=== PATIENT | female | born 1955 | race Caucasian/White ===

== ENCOUNTER → 2018-05-25 11:51 | Outpatient (CLI) | payer OTHER, SELFPAY ==
--- NOTE | 2018-05-25 | DI.MG.S_ITS ---
BILATERAL DIGITAL SCREENING MAMMOGRAM 3D/2D WITH CAD WITH AUGMENTATION: 05/25/2018 CLINICAL: Routine screening. Comparison is made to exams dated: 12/28/2009 mammogram and 08/06/2007 mammogram - [facility]. The tissue of both breasts is heterogeneously dense. This may lower the sensitivity of mammography. Current study was also evaluated with a Computer Aided Detection (CAD) system. No significant masses, calcifications, or other findings are seen in either breast. There has been no significant interval change. IMPRESSION: NEGATIVE There is no mammographic evidence of malignancy. A 1 year screening mammogram is recommended. This exam was interpreted at Station ID: [id number]. NOTE: For mammograms, a report in lay terms will be sent to the patient. Approximately 15% of breast malignancies will not be visualized mammographically. In the management of a palpable breast mass, a negative mammogram must not discourage biopsy of a clinically suspicious lesion. Electronically Signed By: Elijah lozoya/scot:05/25/2018 13:27:56 letter sent: Normal Exam ACR BI-RADS Category 1: Negative [id number]
--- NOTE | 2018-05-25 12:02 | DI.US.S_ITS ---
PROCEDURE: US ARTERIAL DUPLEX LE BI INDICATIONS: Raynaud's syndrome TECHNIQUE: Color and pulse Doppler interrogation was performed of both lower extremity arterial systems, with image documentation. COMPARISON: Merged With [facility], , ARTERIAL LOW.EXTREM.BILATERAL, 05/14/2011, 14:06. FINDINGS: Right lower extremity: Common femoral artery: 111 cm/sec, with triphasic flow. Deep femoral artery: 104 cm/sec, with triphasic flow. Proximal superficial femoral artery: 95 cm/sec, with triphasic flow. Mid superficial femoral artery: 98 cm/sec, with triphasic flow. Distal superficial femoral artery: 81 cm/sec, with triphasic flow. Popliteal artery: 84 cm/sec, with triphasic flow. Posterior tibial artery: 96 cm/sec, with triphasic flow. Anterior tibial artery/dorsalis pedis: 73 cm/sec, with triphasic flow. Blankenship-scale imaging description: Mild atheromatous plaque is present within the right lower extremity arteries. No hemodynamically significant stenosis. Left lower extremity: Common femoral artery: 109 cm/sec, with triphasic flow. Deep femoral artery: 81 cm/sec, with triphasic flow. Proximal superficial femoral artery: 108 cm/sec, with triphasic flow. Mid superficial femoral artery: 111 cm/sec, with triphasic flow. Distal superficial femoral artery: 83 cm/sec, with triphasic flow. Popliteal artery: 74 cm/sec, with triphasic flow. Posterior tibial artery: 89 cm/sec, with triphasic flow. Anterior tibial artery/dorsalis pedis: 105 cm/sec, with triphasic flow. Blankenship-scale imaging description: Mild atheromatous plaque is present within the left lower study arteries. No hemodynamically significant stenosis. IMPRESSION: No hemodynamically significant stenosis of the bilateral lower extremity arteries with triphasic waveforms throughout. Dictated by: Rehana Ramirez M.D. on 05/25/2018 at 16:06 Approved by: Rehana Ramirez M.D. on 05/25/2018 at 16:09
== END ==
PROVIDERS: PCP Student in an Organized Health Care Education/Training Program; Visit Provider Student in an Organized Health Care Education/Training Program
DX: Z12.31 Encounter for screening mammogram for malignant neoplasm of breast (principal); I73.00 Raynaud's syndrome without gangrene; D86.9 Sarcoidosis, unspecified
CPT/HCPCS: 77063; 77067; 93925

== ENCOUNTER → 2019-10-19 07:40 | Outpatient (CLI) | payer OTHER, SELFPAY ==
[2019-10-19 08:23] LABS: Add Manual Diff / Slide Review NO; Basophils Absolute Auto 100 /uL (0-100); Basophils Percent Auto 1.2 % (0-2); Eosinophils Absolute Auto 200 /uL (0-450); Eosinophils Percent Auto 3.5 % (2-4); Hematocrit 39.1 % (36-46); Hemoglobin 13.1 g/dL (12.0-16.0); Lymphocytes Absolute Auto 1300 /uL (1100-4500); Lymphocytes Percent Auto 23.7 % (25-40); Mean Corpuscular HGB Conc 33.6 % (30-36); Mean Corpuscular Volume 92.2 fL (80-100); Monocytes Absolute Auto 500 /uL (0-900); Monocytes Percent Auto 8.6 % (3-14); Neutrophils Absolute Auto 3500 /uL (1500-7000); Platelet Count 272 X10^3/uL (150-400); Red Blood Cell Count 4.24 X10^6/uL (4.0-5.2); White Blood Cell Count 5.5 X10^3/uL (4.5-11.0)
[2019-10-19 08:39] LABS: Alanine Aminotransferase 17 IU/L (<35); Albumin 4.1 g/dL (3.5-5.0); Albumin Globulin Ratio 1.5 (1.0-2.8); Alkaline Phosphatase 62 U/L (38-126); Aspartate Aminotransferase 29 IU/L (14-36); BUN Creatinine Ratio 19.8 (6-22); Bilirubin Total 0.7 mg/dL (0.2-1.3); Blood Urea Nitrogen 20 mg/dL (7-17); Calcium 9.2 mg/dL (8.4-10.2); Carbon Dioxide 31 mmol/L (22-32); Chloride 101 mmol/L (98-107); Estimated Glomerular Filt Rate 54.8 mL/min (>60); Globulin 2.8 g/dL (1.7-4.1); Glucose 99 mg/dL (80-110); HEMOLYSIS < 15 (0-50); Sodium 137 mmol/L (137-145); Total Protein 6.9 g/dL (6.3-8.2)
[2019-10-19 08:47] LABS: Hemoglobin A1C% w Est Avg Glu 5.2 % (4.0-6.0)
[2019-10-19 08:50] LABS: Iron 100 ug/dL (37-170)
[2019-10-19 09:00] LABS: Total Iron Binding Capacity 318 ug/dL (265-497)
[2019-10-19 09:09] LABS: Free T3, Triiodothyronine Free 3.17 pg/mL (2.77-5.27); Free T4, Direct Thyroxine 1.29 ng/dL (0.78-2.19)
[2019-10-19 09:10] LABS: Ferritin 118 ng/mL (11-264); Testosterone 34.7 ng/dL (5.71-77.0)
[2019-10-19 09:22] LABS: Thyroid Stimulating Hormone 6.05 uIU/mL (0.47-4.68)
[2019-10-19 09:23] LABS: Estradiol, Total 552.2 pg/mL
== END ==
PROVIDERS: PCP Internal Medicine; Referring Provider Internal Medicine Endocrinology, Diabetes & Metabolism; Visit Provider Internal Medicine Endocrinology, Diabetes & Metabolism
DX: F64.9 Gender identity disorder, unspecified (principal); E03.9 Hypothyroidism, unspecified; D64.9 Anemia, unspecified
CPT/HCPCS: 36415; 80053; 82670; 82728; 83036; 83540; 83550; 84403; 84439; 84443; 84481; 85025

== ENCOUNTER → 2020-01-12 13:30 | Outpatient (CLI) | payer OTHER, SELFPAY ==
[2020-01-12 16:34] LABS: Alanine Aminotransferase 17 IU/L (<35); Albumin 4.3 g/dL (3.5-5.0); Albumin Globulin Ratio 1.5 (1.0-2.8); Alkaline Phosphatase 84 U/L (38-126); Aspartate Aminotransferase 30 IU/L (14-36); BUN Creatinine Ratio 23.5 (6-22); Bilirubin Total 0.7 mg/dL (0.2-1.3); Blood Urea Nitrogen 27 mg/dL (7-17); Calcium 9.4 mg/dL (8.4-10.2); Carbon Dioxide 32 mmol/L (22-32); Chloride 95 mmol/L (98-107); Estimated Glomerular Filt Rate 47.2 mL/min (>60); Globulin 2.9 g/dL (1.7-4.1); Glucose 89 mg/dL (80-110); HEMOLYSIS < 15 (0-50); Potassium 5.1 mmol/L (3.4-5.1); Sodium 134 mmol/L (137-145); Total Protein 7.2 g/dL (6.3-8.2)
[2020-01-12 16:50] LABS: Free T4, Direct Thyroxine 1.31 ng/dL (0.78-2.19)
[2020-01-12 17:07] LABS: Estradiol, Total 143.4 pg/mL
== END ==
PROVIDERS: PCP Internal Medicine; Referring Provider Internal Medicine Endocrinology, Diabetes & Metabolism; Visit Provider Internal Medicine Endocrinology, Diabetes & Metabolism
DX: F64.9 Gender identity disorder, unspecified (principal); E03.9 Hypothyroidism, unspecified
CPT/HCPCS: 36415; 80053; 82670; 84439; 84443

== ENCOUNTER → 2020-07-18 14:35 | Outpatient (CLI) | payer MEDICARE, SELFPAY ==
[2020-07-18] MEDS: COVID-19 VACC #1, MRNA(MOD) 100 MCG/0.5 ML VIAL IM (14:52)
== END ==
PROVIDERS: PCP Internal Medicine; Visit Provider Internal Medicine
DX: Z23 Encounter for immunization (principal)
CPT/HCPCS: 0011A; 91301

== ENCOUNTER → 2020-08-15 14:22 | Outpatient (CLI) | payer MEDICARE, SELFPAY ==
[2020-08-15] MEDS: COVID-19 VACC #2, MRNA(MOD) 100 MCG/0.5 ML VIAL IM (14:27)
== END ==
PROVIDERS: PCP Internal Medicine; Visit Provider Internal Medicine
DX: Z23 Encounter for immunization (principal)
CPT/HCPCS: 0012A; 91301

== ENCOUNTER → 2020-10-01 08:07 | Outpatient (CLI) | payer OTHER, SELFPAY ==
[2020-10-01 09:43] LABS: Alanine Aminotransferase 17 IU/L (<35); Albumin 3.7 g/dL (3.5-5.0); Albumin Globulin Ratio 1.4 (1.0-2.8); Alkaline Phosphatase 60 U/L (38-126); Aspartate Aminotransferase 27 IU/L (14-36); BUN Creatinine Ratio 24.4 (6-22); Bilirubin Total 0.4 mg/dL (0.2-1.3); Blood Urea Nitrogen 22 mg/dL (7-17); Calcium 9.1 mg/dL (8.4-10.2); Carbon Dioxide 28 mmol/L (22-32); Chloride 102 mmol/L (98-107); Cholesterol 192 mg/dL (140-199); Estimated Glomerular Filt Rate > 60.0 mL/min (>60); Globulin 2.6 g/dL (1.7-4.1); Glucose 101 mg/dL (80-110); HDL Cholesterol 46 mg/dL (40-60); HEMOLYSIS < 15 (0-50); LDL Cholesterol Calculated 128 mg/dL (<100); Sodium 137 mmol/L (137-145); Total Protein 6.3 g/dL (6.3-8.2); Triglycerides 89 mg/dL (35-150)
[2020-10-01 10:30] LABS: TSH w/ Reflex to FT4 2.47 uIU/mL (0.47-4.68)
== END ==
PROVIDERS: PCP Internal Medicine; Referring Provider Internal Medicine; Visit Provider Internal Medicine
DX: I10 Essential (primary) hypertension (principal); E03.9 Hypothyroidism, unspecified; E78.5 Hyperlipidemia, unspecified
CPT/HCPCS: 36415; 80053; 80061; 84443

== ENCOUNTER → 2021-11-08 08:32 | Outpatient (CLI) | payer OTHER, SELFPAY ==
[2021-11-08 09:50] LABS: Hemoglobin A1C% w Est Avg Glu 5.5 % (4.0-6.0)
[2021-11-08 09:56] LABS: Alanine Aminotransferase 14 IU/L (<35); Albumin Globulin Ratio 1.5 (1.0-2.8); Alkaline Phosphatase 63 U/L (38-126); Aspartate Aminotransferase 27 IU/L (14-36); BUN Creatinine Ratio 18.8 (6-22); Bilirubin Total 0.6 mg/dL (0.2-1.3); Blood Urea Nitrogen 19 mg/dL (7-17); Calcium 8.7 mg/dL (8.4-10.2); Carbon Dioxide 29 mmol/L (22-32); Chloride 101 mmol/L (98-107); Cholesterol 216 mg/dL (140-199); Estimated Glomerular Filt Rate > 60 mL/min (>60); Globulin 2.6 g/dL (1.7-4.1); Glucose 104 mg/dL (80-110); HDL Cholesterol 47 mg/dL (40-60); HEMOLYSIS < 15 (0-50); LDL Cholesterol Calculated 143 mg/dL (<100); Potassium 4.3 mmol/L (3.4-5.1); Sodium 137 mmol/L (137-145); Total Protein 6.6 g/dL (6.3-8.2); Triglycerides 130 mg/dL (35-150)
[2021-11-08 10:15] LABS: Free T4, Direct Thyroxine 1.45 ng/dL (0.78-2.19)
[2021-11-08 10:26] LABS: Estradiol, Total 96.2 pg/mL
[2021-11-08 10:28] LABS: Testosterone 48.2 ng/dL (5.71-77.0)
[2021-11-08 10:29] LABS: Thyroid Stimulating Hormone 2.32 uIU/mL (0.47-4.68)
[2021-11-09 05:11] LABS: C Peptide 4.1 ng/mL (1.1-4.4)
== END ==
PROVIDERS: PCP Student in an Organized Health Care Education/Training Program; Referring Provider Internal Medicine Endocrinology, Diabetes & Metabolism; Visit Provider Internal Medicine Endocrinology, Diabetes & Metabolism
DX: R73.9 Hyperglycemia, unspecified (principal); E03.9 Hypothyroidism, unspecified; F64.9 Gender identity disorder, unspecified
CPT/HCPCS: 36415; 80053; 80061; 82670; 83036; 84403; 84439; 84443; 84681

== ENCOUNTER → 2021-11-20 14:18 | Outpatient (CLI) | payer OTHER, SELFPAY ==
[2021-11-20 16:35] LABS: Appearance Urine UA CLEAR; Bilirubin Urine UA NEGATIVE (NEGATIVE); Color Urine UA YELLOW; Glucose Urine UA NEGATIVE (Negative); Ketones Urine UA NEGATIVE (NEGATIVE); Leukocyte Esterase Urine UA NEGATIVE (NEGATIVE); Nitrite Urine UA NEGATIVE (Negative); Occult Blood Urine UA NEGATIVE (Negative); Protein Urine UA NEGATIVE (Negative); Specific Gravity Urine UA 1.015 (1.000-1.035); Urobilinogen Urine UA 0.2 E.U./dL (0.2)
[2021-11-20 16:39] LABS: pH Urine UA 7.5 (4.5-8.0)
[2021-11-20 16:42] LABS: RBC Urine None Seen (0-5/HPF); Squamous Epithelial Cell Urine 10-30 /HPF (0-5/HPF); WBC Urine None Seen (0-5/HPF)
[2021-11-20 17:00] LABS: Erythrocyte Sedimentation Rate 20 MM/HR (0-20)
[2021-11-20 17:10] LABS: C-Reactive Protein Quant 0.9 mg/dL (<1.0)
[2021-11-20 20:43] LABS: Bacteria Urine None Seen
[2021-11-22 14:14] LABS: ANA Screen, IFA Negative (.)
== END ==
PROVIDERS: PCP Student in an Organized Health Care Education/Training Program; Referring Provider Student in an Organized Health Care Education/Training Program; Visit Provider Student in an Organized Health Care Education/Training Program
DX: I73.00 Raynaud's syndrome without gangrene (principal)
CPT/HCPCS: 36415; 81001; 85651; 86038; 86140

== ENCOUNTER → 2022-01-07 08:41 | Outpatient (CLI) | payer OTHER, SELFPAY ==
--- NOTE | 2022-01-07 08:42 | DI.RAD.S_ITS ---
PROCEDURE: XR KNEE LT 3V INDICATIONS: persistent left knee pain TECHNIQUE: 3 views of the knee were acquired. COMPARISON: None. FINDINGS: Bones: No fractures or dislocations. Ixnh-pr-cdqtemcx medial femoral tibial compartment osteoarthritic changes are seen with joint space narrowing, subchondral sclerosis and marginal osteophyte formation. Focal area of cortical irregularity involving weight-bearing portion of medial femoral condyle is seen, concerning for osteochondral injury in this area. No suspicious bony lesions. Soft tissues: There is small amount of suprapatellar joint effusion. No suspicious soft tissue calcifications. IMPRESSION: Lesv-gt-dduujnuj medial femoral tibial compartment osteoarthritis with suggestion of osteochondral injury involving weight-bearing portion of talar dome. No acute fracture or dislocation. Small to moderate amount of suprapatellar joint effusion. If indicated, MRI of knee can be done for further evaluation of internal derangement. Dictated by: Veto Rosario M.D. on 01/07/2022 at 9:58 Approved by: Veto Rosario M.D. on 01/07/2022 at 9:59
== END ==
PROVIDERS: PCP Student in an Organized Health Care Education/Training Program; Referring Provider Student in an Organized Health Care Education/Training Program; Visit Provider Student in an Organized Health Care Education/Training Program
DX: M25.562 Pain in left knee (principal); M17.12 Unilateral primary osteoarthritis, left knee
CPT/HCPCS: 73562

== ENCOUNTER → 2022-01-17 12:31 | Outpatient (CLI) | payer OTHER, SELFPAY ==
--- NOTE | 2022-01-17 12:33 | DI.MRI.S_ITS ---
PROCEDURE: MR KNEE LT WO CON INDICATIONS: Knee pain. Abnormal xray TECHNIQUE: Noncontrast sagittal PD fast spin echo and T2 fast spin echo with fat saturation, sagittal 3-D FLASH with fat saturation; coronal T1 spin echo and PD fast spin echo with fat saturation, and axial PD fast spin echo with fat saturation through the knee. COMPARISON: [facility], CR, XR KNEE LT 3V, 01/07/2022, 8:42. FINDINGS: Image quality: Excellent. Menisci: Complex tear involving posterior horn of medial meniscus is seen extending to both superior and inferior articulating surfaces. Peripheral displacement of medial meniscus bowing medial collateral ligament is seen. Lateral meniscus is intact. The meniscal root ligaments appear intact. Cruciate ligaments: Low to moderate grade partial-thickness tear involving proximal to midportion of anterior cruciate ligament. No full-thickness ACL rupture. PCL is intact. Medial structures: Moderate grade medial collateral ligament sprain/partial-thickness tear particularly near its femoral insertion is seen.. The posterior oblique ligament, semimembranosus tendon insertions, oblique popliteal ligament, and meniscocapsular junction appear intact. Visualized portions of the pes anserinus tendons appear normal. No abnormal bursal fluid. Lateral structures: Low-grade proximal LCL sprain/partial-thickness tear is seen. The long and short heads of the biceps femoris tendon appear intact. The popliteus tendon appears normal; the popliteofibular ligament appears intact. Iliotibial band appears normal. Anterior structures: The quadriceps and patellar tendons appear intact. Patellar alignment is normal. No femoral trochlear dysplasia or ventral trochlear prominence. No edema in the infrapatellar fat pad. Bones and cartilage: Moderate to severe medial femoral tibial compartment osteoarthritis and moderate grade chondromalacia is seen. 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 Low-grade chondromalacia and mild osteoarthritis in lateral femoral tibial compartment and patellofemoral compartment is seen. Joint space: There is moderate to large knee joint fluid. There is a tiny Jerome's cyst. No definite intra-articular loose body is seen. Normal appearing synovial plicae are incidentally noted. IMPRESSION: 1. 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 2. Moderate to severe medial femoral tibial compartment osteoarthritis and moderate grade chondromalacia. Mild osteoarthritis and low-grade chondromalacia in patellofemoral compartment and lateral femoral tibial compartment. Moderate to large joint effusion, no gross loose bodies. 3. Complex tear involving posterior horn of medial meniscus extending to both superior and inferior articulating surfaces. No focal lateral meniscal tear. 4. Low to moderate grade partial-thickness tear involving proximal to midportion of ACL. No ACL rupture. PCL is intact. 5. Moderate grade MCL sprain/partial-thickness tear and low-grade proximal LCL sprain/partial-thickness tear. Dictated by: Veto Rosario M.D. on 01/17/2022 at 14:03 Approved by: Veto Rosario M.D. on 01/17/2022 at 14:13
== END ==
PROVIDERS: PCP Student in an Organized Health Care Education/Training Program; Referring Provider Student in an Organized Health Care Education/Training Program; Visit Provider Student in an Organized Health Care Education/Training Program
DX: S83.232A Complex tear of medial meniscus, current injury, left knee, initial encounter (principal); S83.512A Sprain of anterior cruciate ligament of left knee, initial encounter; S83.412A Sprain of medial collateral ligament of left knee, initial encounter; S83.422A Sprain of lateral collateral ligament of left knee, initial encounter; M17.12 Unilateral primary osteoarthritis, left knee; M22.42 Chondromalacia patellae, left knee; M25.462 Effusion, left knee; M25.562 Pain in left knee
CPT/HCPCS: 73721

== ENCOUNTER → 2022-03-27 11:15 | Outpatient (CLI) | payer OTHER, SELFPAY ==
[2022-03-27 13:59] LABS: BUN Creatinine Ratio 14.1 (6-22); Blood Urea Nitrogen 13 mg/dL (7-17); Calcium 9.1 mg/dL (8.4-10.2); Carbon Dioxide 30 mmol/L (22-32); Chloride 99 mmol/L (98-107); Estimated Glomerular Filt Rate > 60 mL/min (>60); Glucose 95 mg/dL (80-110); HEMOLYSIS < 15 (0-50); Potassium 4.6 mmol/L (3.4-5.1); Sodium 138 mmol/L (137-145)
== END ==
PROVIDERS: PCP Student in an Organized Health Care Education/Training Program; Referring Provider Student in an Organized Health Care Education/Training Program; Visit Provider Student in an Organized Health Care Education/Training Program
DX: Z01.818 Encounter for other preprocedural examination (principal)
CPT/HCPCS: 36415; 80048

== ENCOUNTER → 2022-03-31 12:21 | Outpatient (CLI) | payer OTHER, SELFPAY ==
--- NOTE | 2022-03-31 12:25 | DI.CT.S_ITS ---
PROCEDURE: CT ANGIO ABD AORTA RUNOFF INDICATIONS: Non-healing ulcer, faint DP pulse TECHNIQUE: After the administration of intravenous contrast, 2.5 mm sections acquired from T12 to the feet, with optional delayed image acquisition from the knees to the feet. 3-dimensional maximum intensity projection (MIP) coronal and sagittal reformats, and/or 3-dimensional volume rendering reformatting was then performed. For radiation dose reduction, the following was used: automated exposure control. COMPARISON: None. FINDINGS: Image quality: Excellent. Extravascular tissues: Lung bases are clear. Heart size is normal. Liver is normal in size and enhancement. Gallbladder is unremarkable . Biliary system is non dilated. Pancreas enhances normally. Spleen is normal in size and enhancement. No adrenal nodules. Kidneys are normal in size and enhancement, without hydronephrosis. Non opacified bowel loops demonstrate normal wall thickness and enhancement. There are scattered sigmoid diverticula. No evidence for diverticulitis. The appendix is thin walled. No free fluid or air. No retroperitoneal or mesenteric adenopathy. No ventral hernias. Bladder wall thickness is normal. No inguinal adenopathy. There are small bilateral fat containing inguinal hernias. No suspicious bony lesions. No vertebral body compression fractures. Abdominal aorta: The abdominal aorta demonstrates normal size and caliber. No atheromatous plaque, atheromatous calcifications, stenosis, occlusion, or aneurysmal dilatation. The celiac axis, SMA, HENRIK and bilateral renal arteries are widely patent. Right lower extremity: The arteries of the right lower extremity are widely patent without focal hemodynamically significant stenosis, atheromatous plaque, atheromatous calcification, or aneurysmal dilatation. There is 3 vessel runoff to the level of the foot. Left lower extremity: The arteries of the left lower extremity are widely patent without focal hemodynamically significant stenosis, atheromatous plaque, atheromatous calcification, or aneurysmal dilatation. There is 3 vessel left lower extremity runoff. IMPRESSION: 1. No focal hemodynamically significant stenosis of the aorta, mesenteric arteries, renal arteries, or the bilateral lower extremity arteries. No atheromatous plaque or calcification noted. 2. Three-vessel bilateral lower extremity runoff. 3. No acute intra-abdominal findings. Dictated by: Rehana Ramirez M.D. on 03/31/2022 at 14:56 Approved by: Rehana Ramirez M.D. on 03/31/2022 at 15:01
== END ==
PROVIDERS: PCP Student in an Organized Health Care Education/Training Program; Referring Provider Student in an Organized Health Care Education/Training Program; Visit Provider Student in an Organized Health Care Education/Training Program
DX: Z13.820 Encounter for screening for osteoporosis (principal); L97.509 Non-pressure chronic ulcer of other part of unspecified foot with unspecified severity; Z78.0 Asymptomatic menopausal state; M25.569 Pain in unspecified knee; Z87.311 Personal history of (healed) other pathological fracture; Z92.23 Personal history of estrogen therapy; Z92.241 Personal history of systemic steroid therapy
CPT/HCPCS: 75635; 77080

== ENCOUNTER → 2023-08-26 12:33 | Outpatient (CLI) | payer OTHER, SELFPAY ==
[2023-08-26 14:14] LABS: Alanine Aminotransferase 20 IU/L (<35); Albumin 4.4 g/dL (3.5-5.0); Albumin Globulin Ratio 1.5 (1.0-2.8); Alkaline Phosphatase 68 U/L (38-126); Aspartate Aminotransferase 29 IU/L (14-36); BUN Creatinine Ratio 17.8 (6-22); Bilirubin Total 0.8 mg/dL (0.2-1.3); Blood Urea Nitrogen 18 mg/dL (7-17); Carbon Dioxide 28 mmol/L (22-32); Chloride 105 mmol/L (98-107); Cholesterol 196 mg/dL (140-199); Estimated Glomerular Filt Rate 60 mL/min (>60); Glucose 100 mg/dL (80-110); HDL Cholesterol 37 mg/dL (40-60); HEMOLYSIS < 15 (0-50); LDL Cholesterol Calculated 125 mg/dL (<100); Sodium 138 mmol/L (137-145); Total Protein 7.4 g/dL (6.3-8.2); Triglycerides 168 mg/dL (35-150)
[2023-08-26 14:46] LABS: TSH w/ Reflex to FT4 1.95 uIU/mL (0.47-4.68)
== END ==
PROVIDERS: PCP Student in an Organized Health Care Education/Training Program; Referring Provider Student in an Organized Health Care Education/Training Program; Visit Provider Student in an Organized Health Care Education/Training Program
DX: E03.9 Hypothyroidism, unspecified (principal); K21.9 Gastro-esophageal reflux disease without esophagitis; F32.9 Major depressive disorder, single episode, unspecified; E78.5 Hyperlipidemia, unspecified
CPT/HCPCS: 36415; 80053; 80061; 84443

== ENCOUNTER → 2023-10-19 09:52 | Outpatient (CLI) | payer OTHER, SELFPAY ==
--- NOTE | 2023-10-19 09:53 | DI.RAD.S_ITS ---
PROCEDURE: XR CERVICAL SPINE 2V OR 3V INDICATIONS: Numbness and tingling TECHNIQUE: 3 view(s) of the cervical spine were acquired. COMPARISON: None. FINDINGS: Bones: There is reversal of normal cervical lordosis. Degenerative endplate changes, loss of disc height and bilateral uncovertebral hypertrophic changes throughout cervical spine is seen more notably involving C4-5 through C6-7 levels. The lateral masses of C1 appear intact on the odontoid view. No suspicious bony lesions. Soft tissues: No prevertebral soft tissue swelling. IMPRESSION: No acute cervical spine fracture or dislocation. Moderate degenerative disc disease in mid to lower cervical spine as above. Dictated by: Veto Rosario M.D. on 10/19/2023 at 12:37 Approved by: Veto Rosario M.D. on 10/19/2023 at 12:38
--- NOTE | 2023-10-19 09:53 | DI.RAD.S_ITS ---
PROCEDURE: XR SHOULDER RT MIN 2V INDICATIONS: Numbness and tingling TECHNIQUE: 3 views of the shoulder were acquired. COMPARISON: None. FINDINGS: Bones: No fractures or dislocations. Moderate to severe glenohumeral joint osteoarthritis and moderate acromioclavicular joint osteoarthritis is seen. No suspicious bony lesions. Visualized ribs appear intact. Soft tissues: No suspicious soft tissue calcifications. IMPRESSION: Moderate acromioclavicular joint osteoarthritis and moderate to severe glenohumeral joint osteoarthritis. No fracture or dislocation. Dictated by: Veto Rosario M.D. on 10/19/2023 at 12:38 Approved by: Veto Rosario M.D. on 10/19/2023 at 12:38
== END ==
PROVIDERS: PCP Student in an Organized Health Care Education/Training Program; Referring Provider Student in an Organized Health Care Education/Training Program; Visit Provider Student in an Organized Health Care Education/Training Program
DX: M50.321 Other cervical disc degeneration at C4-C5 level (principal); M19.011 Primary osteoarthritis, right shoulder; R20.0 Anesthesia of skin; R20.2 Paresthesia of skin
CPT/HCPCS: 72040; 73030

== ENCOUNTER → 2023-10-27 07:51 | Outpatient (CLI) | payer OTHER, SELFPAY ==
--- NOTE | 2023-10-27 07:52 | DI.MRI.S_ITS ---
PROCEDURE: MR SHOULDER RT WO CON INDICATIONS: Chronic Right Shoulder pain TECHNIQUE: Noncontrast oblique coronal T2 fast spin echo with fat saturation, oblique sagittal T1 spin echo and T2 fast spin echo with fat saturation, axial T1 spin echo and T2 fast spin echo with fat saturation through the shoulder. COMPARISON: [facility], CR, XR SHOULDER RT MIN 2V, 10/19/2023, 10:07. FINDINGS: Image quality: Excellent. Rotator cuff: Low to moderate grade articular and bursal surface partial thickness tear involving distal supraspinatus at its insertion on the humeral head is seen extending to musculotendinous junction. Distal infraspinatus tendinosis and low-grade articular surface partial-thickness tear at its insertion on the humeral head is also noted. Distal subscapularis tendinosis is seen. No full-thickness rotator cuff tendon rupture. Sagittal images demonstrate moderate supraspinatus muscle atrophy. Bones and bursae: No bone marrow contusions or fractures. Unqa-of-euulbarz acromioclavicular joint osteoarthritic changes are seen with marginal osteophyte formation depressing the musculotendinous junction of supraspinatus. Type 1 acromion without an os acromiale. Moderate to severe glenohumeral joint osteoarthritic changes are seen with near complete loss of joint space and marginal osteophyte formation. Small to moderate amount of joint effusion and subacromial subdeltoid bursal fluid is seen, no loose bodies. Capsule and soft tissues: There is fraying of superior anterior labrum with T2 hyperintense signal . Similar fraying and signal abnormality involving anterior inferior labrum is also seen. The long head of the biceps tendon demonstrates normal location and morphology. The rotator interval appears normal, without fibrosis. The coracohumeral ligament is normal in thickness. IMPRESSION: 1. Low to moderate grade articular and bursal surface partial thickness tear involving distal supraspinatus extending to musculotendinous junction. Distal infraspinatus tendinosis and low-grade articular surface partial-thickness tear. Distal subscapularis tendinosis. No full-thickness rotator cuff tendon rupture. Moderate supraspinatus muscle atrophy. 2. Yoqz-zx-lzmlhgjr acromioclavicular joint osteoarthritis. No fracture or dislocation. Moderate to severe glenohumeral joint osteoarthritis. Moderate joint effusion and subacromial subdeltoid bursal fluid, no loose bodies. 3. Suggestion of superior anterior labral tear and anterior inferior labral tear. Dictated by: Veto Rosario M.D. on 10/27/2023 at 15:31 Approved by: Veto Rosario M.D. on 10/27/2023 at 15:44
--- NOTE | 2023-10-27 07:52 | DI.CT.S_ITS ---
PROCEDURE: CT CHEST WO CON INDICATIONS: Non cardiac chest pain TECHNIQUE: Noncontrast 5 mm thick sections acquired from the pulmonary apices to the posterior costophrenic angles. 1 mm lung window, 5 mm thick coronal and sagittal and 7 mm axial MIP reformats were then acquired. For radiation dose reduction, the following was used: automated exposure control, adjustment of mA and/or kV according to patient size. COMPARISON: [facility], CT, THORAX WITHOUT CONTRAST, 05/25/2013, 7:32. FINDINGS: Image quality: Diagnostic. Lower Neck: No enlarged lymph nodes. Thyroid: No thyroid nodules which require sonographic follow up, per consensus guidelines. Axillae: No enlarged lymph nodes. Chest Wall: Bilateral breast implants. Bones: Unremarkable. Lungs and Pleura: No pneumothorax or pleural effusions. Left upper lobe wedge resection. 3-4 mm solid nodule in the left upper lobe (series 3, image 102). Juxtapleural nodules with smooth margins, favoring benign intrapulmonary lymph nodes. Subpleural fat hypertrophy of the lung bases. Calcified granuloma. Heart: Heart size is normal. No pericardial effusion. Thoracic Vessels: The aorta and pulmonary arteries demonstrate normal size. Mediastinum and Jessica: No enlarged lymph nodes. Esophagus: No wall thickening. No hiatal hernia. Upper Abdomen: Visualized upper abdomen solid organs and bowel loops appear normal. IMPRESSION: No findings to explain the patient's chest pain. 3-4 mm solid nodule in the left upper lobe. Consider 12 month follow-up if at high risk for developing lung cancer, per Fleischner Society guidelines. Dictated by: Lamonte Mccarthy M.D. on 10/27/2023 at 11:20 Approved by: Lamonte Mccarthy M.D. on 10/27/2023 at 11:23
== END ==
PROVIDERS: PCP Student in an Organized Health Care Education/Training Program; Referring Provider Student in an Organized Health Care Education/Training Program; Visit Provider Student in an Organized Health Care Education/Training Program
DX: R91.1 Solitary pulmonary nodule (principal); R07.89 Other chest pain; M75.111 Incomplete rotator cuff tear or rupture of right shoulder, not specified as traumatic; M19.011 Primary osteoarthritis, right shoulder; M25.411 Effusion, right shoulder; M62.511 Muscle wasting and atrophy, not elsewhere classified, right shoulder; M25.511 Pain in right shoulder
CPT/HCPCS: 71250; 73221

== ENCOUNTER → 2024-01-14 15:23 | Outpatient (CLI) | payer OTHER, SELFPAY | PROVIDERS: PCP Student in an Organized Health Care Education/Training Program; Referring Provider Student in an Organized Health Care Education/Training Program; Visit Provider Student in an Organized Health Care Education/Training Program | DX: R06.02 Shortness of breath (principal); Z86.2 Personal history of diseases of the blood and blood-forming organs and certain disorders involving the immune mechanism; R94.2 Abnormal results of pulmonary function studies | CPT/HCPCS: 94060; 94726; 94729 ==

== ENCOUNTER → 2024-01-15 12:23 | Outpatient (CLI) | payer OTHER, SELFPAY ==
[2024-01-15 13:50] LABS: Add Manual Diff / Slide Review NO; Basophils Absolute Auto 100 /uL (0-100); Basophils Percent Auto 0.9 % (0-2); Eosinophils Absolute Auto 200 /uL (0-450); Eosinophils Percent Auto 3.9 % (2-4); Hematocrit 37.5 % (36-46); Hemoglobin 12.6 g/dL (12.0-16.0); Lymphocytes Absolute Auto 1100 /uL (1100-4500); Lymphocytes Percent Auto 18.1 % (25-40); Mean Corpuscular HGB Conc 33.8 % (30-36); Mean Corpuscular Hemoglobin 30.9 PG (26-34); Mean Corpuscular Volume 91.6 fL (80-100); Monocytes Absolute Auto 500 /uL (0-900); Monocytes Percent Auto 8.6 % (3-14); Neutrophils Absolute Auto 4200 /uL (1500-7000); Neutrophils Percent Auto 68.5 % (50-75); Platelet Count 290 X10^3/uL (150-400); Red Blood Cell Count 4.09 X10^6/uL (4.0-5.2); Red Cell Distribution Width 13.5 % (11.6-14.8); White Blood Cell Count 6.1 X10^3/uL (4.5-11.0)
[2024-01-15 14:07] LABS: Hemoglobin A1C% w Est Avg Glu 5.5 % (4.0-6.0)
[2024-01-15 14:14] LABS: Cholesterol 171 mg/dL (140-199); HDL Cholesterol 33 mg/dL (40-60); LDL Cholesterol Calculated 114 mg/dL (<100); Triglycerides 118 mg/dL (35-150)
[2024-01-15 14:42] LABS: TSH w/ Reflex to FT4 2.55 uIU/mL (0.47-4.68)
== END ==
PROVIDERS: PCP Student in an Organized Health Care Education/Training Program; Referring Provider Student in an Organized Health Care Education/Training Program; Visit Provider Student in an Organized Health Care Education/Training Program
DX: R63.5 Abnormal weight gain (principal)
CPT/HCPCS: 36415; 80061; 83036; 84443; 85025

== ENCOUNTER → 2024-05-09 15:35 | Outpatient (CLI) | payer MEDICARE, SELFPAY ==
[2024-05-09 17:10] LABS: Prostate Specific Antigen Scrn < 0.064 ng/mL
== END ==
PROVIDERS: PCP Student in an Organized Health Care Education/Training Program; Referring Provider Urology; Visit Provider Urology
DX: Z12.5 Encounter for screening for malignant neoplasm of prostate (principal); N39.498 Other specified urinary incontinence; F64.0 Transsexualism; N40.1 Benign prostatic hyperplasia with lower urinary tract symptoms; N13.8 Other obstructive and reflux uropathy
CPT/HCPCS: 36415; 51798; 81002; 99214; G0103

== ENCOUNTER → 2024-05-20 11:57 | Outpatient (CLI) | payer MEDICARE, SELFPAY ==
[2024-05-20 12:30] LABS: Add Manual Diff / Slide Review NO; Basophils Absolute Auto 100 /uL (0-100); Basophils Percent Auto 0.9 % (0-2); Eosinophils Absolute Auto 200 /uL (0-450); Eosinophils Percent Auto 2.6 % (2-4); Hematocrit 36.3 % (41-53); Hemoglobin 12.3 g/dL (13.5-17.5); Lymphocytes Absolute Auto 900 /uL (1100-4500); Mean Corpuscular Hemoglobin 30.5 PG (26-34); Mean Corpuscular Volume 89.7 fL (80-100); Monocytes Absolute Auto 500 /uL (0-900); Monocytes Percent Auto 6.7 % (3-14); Neutrophils Absolute Auto 5500 /uL (1500-7000); Neutrophils Percent Auto 76.8 % (50-75); Platelet Count 307 X10^3/uL (150-400); Red Blood Cell Count 4.04 X10^6/uL (4.5-5.9); Red Cell Distribution Width 13.8 % (11.6-14.8); White Blood Cell Count 7.1 X10^3/uL (4.5-11.0)
--- NOTE | 2024-05-20 12:31 | EKG_ITS ---
[address] [address] Test Date: 2024-05-20 Pat Name: Meghan Nickerson Department: [facility] Room: Gender: Male [facility]idential [facility] Staff: KAREEM : 1955 Requested By: Order Number: [id number] Reading MD: Jose Alfredo Brooke Measurements Intervals [place] Rate: 67 P: 18 TX: 146 QRS: 40 QRSD: 142 T: 19 QT: 438 QTc: 462 Interpretive Statements Normal sinus rhythm Right bundle branch block Electronically Signed On 05-20-2024 16:25:16 PST by Jose Alfredo Brooke
[2024-05-20 12:45] LABS: Albumin 3.9 g/dL (3.5-5.0); BUN Creatinine Ratio 15.1 (6-22); Blood Urea Nitrogen 19 mg/dL (9-20); Carbon Dioxide 30 mmol/L (22-32); Chloride 101 mmol/L (98-107); Estimated Glomerular Filt Rate > 60 mL/min (>60); Glucose 113 mg/dL (80-110); HEMOLYSIS < 15 (0-50); Potassium 4.7 mmol/L (3.4-5.1); Sodium 136 mmol/L (137-145)
[2024-05-20 12:53] LABS: Prealbumin 22.6 mg/dL (17.6-36.0)
[2024-05-20 13:05] LABS: Hemoglobin A1C% w Est Avg Glu 5.7 % (4.0-6.0)
[2024-05-20 16:42] LABS: Vitamin D 25 Hydroxy (D3) 55.5 ng/mL (30.0-100.0)
== END ==
LOC: LAB 11:58
PROVIDERS: PCP Student in an Organized Health Care Education/Training Program; Referring Provider Podiatrist; Visit Provider Podiatrist
DX: Z01.818 Encounter for other preprocedural examination (principal); R73.9 Hyperglycemia, unspecified; E55.9 Vitamin D deficiency, unspecified; R77.0 Abnormality of albumin; Z01.812 Encounter for preprocedural laboratory examination
CPT/HCPCS: 36415; 80048; 82040; 82306; 83036; 84134; 85025; 93005

== ENCOUNTER → 2024-06-09 13:40 | Outpatient (CLI) | payer MEDICARE, SELFPAY ==
--- NOTE | 2024-06-09 13:41 | DI.ECHO.S_ITS ---
[facility]---------+ Hospital : : [id number] : : [place] : : [id number] : : Phone: [phone] Echocardiogram Report + + :Name: JOJO REDD Study Date: 06/09/2024 Height: 71 in : :[facility] ReadingLocation: Weight: 295 lb: : Gender: Female BSA: 2.5 m2 : :: 1955 Age: 68 yrs : :Reason For Study: PRE-OP EVAL : :Ordering Physician: LUCIE MORRIS Performed By: Chon Gray : :Referring: LUCIE MORRIS : + + Interpretation Summary TDS - BODY HABITUS, BREAST IMPLANTS 1. This study is not interpretable due to extremely poor acoustic windows. Procedure: A two-dimensional transthoracic echocardiogram with color flow and Doppler was performed in limited views only. The study quality was technically limited. The study quality was technically difficult. There is no prior echocardiogram noted for this patient. The patient was in normal sinus rhythm during the exam. Left Ventricle: The left ventricle is not well visualized. Right Ventricle: The right ventricle is not well visualized. Atria: The left atrium is not well visualized. Right atrium not well visualized. Mitral Valve: The mitral valve is not well visualized. Aortic Valve: The aortic valve is not well visualized. Tricuspid Valve: The tricuspid valve is not well visualized. Pulmonic Valve: The pulmonic valve is not well visualized. Great Vessels: The aortic root is not well visualized. The ascending aorta could not be visualized. The pulmonary is not well visualized. The inferior vena cava was not visualized. Reading Physician:STEPHAN
== END ==
PROVIDERS: PCP Student in an Organized Health Care Education/Training Program; Referring Provider Internal Medicine; Visit Provider Internal Medicine
DX: Z01.818 Encounter for other preprocedural examination (principal)
CPT/HCPCS: 93306

== ENCOUNTER → 2024-06-15 08:49 | Outpatient (CLI) | payer MEDICARE, SELFPAY ==
--- NOTE | 2024-06-15 08:51 | DI.NM.S_ITS ---
PROCEDURE: NM TRISTON PERF SPECT R&S PHARM Rest and pharmacological stress myocardial perfusion SPECT with gated imaging and ejection fraction RADIOPHARMACEUTICAL: 12 mCi Tc-99m tetrafosmin IV at rest and 25.4 mCi Tc-99m tetrafosmin IV at peak effect of pharmacological stress. A [id number]-pccurerf was performed. INDICATIONS: PRE OP EVAL TECHNIQUE: Radiopharmaceutical was injected at peak stress test, and also at rest. SPECT images were obtained. SPECT myocardial perfusion images were displayed in short axis, horizontal long axis, and vertical long axis views. Gated images were reviewed using Textingly software. COMPARISON: None. CARDIAC STRESS: A pharmacologic stress test was performed under the supervision of an attending staff, using an infusion of regadenoson 0.4 mg IV. Hemodynamic data: There is normal blood pressure and heart rate response to pharmacologic stress. Symptoms: The patient denied anginal chest pain. EKG: No diagnostic changes of ischemia; no ectopy. FINDINGS: Raw data: There is good myocardial uptake of radiotracer. There is evidence of patient motion, breast and diaphragmatic attenuation artifacts. Ayjn-az-qkzpi ratio is 0.39 (normal is less than 0.38 for tetrafosmin tracer). Left ventricle function: Gated images demonstrate normal left ventricular wall thickening. No segmental wall motion abnormalities. No transient ischemic dilation; TID is 0.81 (normal less than 1.3). Left ventricle resting end diastolic volume is 89 mL. Left ventricle stress ejection fraction is >75%; normal range is above 45%. Myocardial perfusion: There is normal distribution of activity in the right and left ventricular myocardium. No fixed or reversible perfusion defects. IMPRESSION: Probably a low risk study however quality is compromised by patient motion, breast and diaphragmatic attenuation artifacts. No evidence of pharmacologic induced ischemia or scar. Normal LV size with hyperdynamic function. Dictated by: Melani Luna D.O. on 06/15/2024 at 17:08 Approved by: Melani Luna D.O. on 06/15/2024 at 17:11
== END ==
PROVIDERS: PCP Student in an Organized Health Care Education/Training Program; Referring Provider Internal Medicine; Visit Provider Internal Medicine
DX: Z01.818 Encounter for other preprocedural examination (principal)
CPT/HCPCS: 78452; 93017; A9502; J2785

== ENCOUNTER 2024-06-17 11:56 | Day surgery (SDC) | payer MEDICARE, SELFPAY ==
[2024-06-07 12:43] VITALS: BMI 40.4
[2024-06-17] VITALS (14 sets, daily range): BP systolic 106–195; BP diastolic 50–94; PULSE 61–79; RESP 14–19; TEMP 36.1–36.8; O2SAT 92–98; BMI 40.1
--- NOTE | 2024-06-17 06:00 | DI.RAD.S_ITS ---
PROCEDURE: XR KNEE LT 1TO2V INDICATIONS: tka TECHNIQUE: 2 view(s) of the knee acquired. COMPARISON: [facility], , XR KNEE LT 3V, 01/07/2022, 8:42. FINDINGS: Bones: Patient is status post knee joint arthroplasty. Hardware components are in expected positions. Visualized bony structures are intact. Soft tissues: Overlying postoperative changes are noted. IMPRESSION: Expected post-operative appearance of a knee arthroplasty. Dictated by: Nisha Hodges M.D. on 06/17/2024 at 16:57 Approved by: Nisha Hodges M.D. on 06/17/2024 at 16:57
[2024-06-17] MEDS: LACTATED RINGERS 1,000 ML 42 ML IV ×2 (12:40→15:35)
[2024-06-17] MEDS: ACETAMINOPHEN 325 MG TABLET 975 MG PO (12:40)
[2024-06-17] MEDS: MELOXICAM 7.5 MG TABLET 15 MG PO (12:40)
[2024-06-17] MEDS: CEFAZOLIN VIAL 3 GM in SODIUM CHLORIDE 0.9% 100 ML IV ×2 (14:10→21:46)
[2024-06-17] MEDS: TRANEXAMIC ACID 1,000 MG VIAL 2000 MG INJ ×2 (14:15→15:34)
--- NOTE | 2024-06-17 14:44 | SUR.OPER ---
Supine on padded OR bed. Pillow under head, arms secured on padded armboards <90 degree abduction. Safety belt across torso. Non-operative leg secured with tape over blanket over lower leg. Operative leg secured in DeMayo/Aurelio/Nathe positioner. Foam padded brace at thigh of operative leg.
[2024-06-17] MEDS: ROPIVACAINE/EPI/CLONIDINE/KET 50 ML SYRINGE INJ (14:56)
--- NOTE | 2024-06-17 16:01 | P.OP_ITS ---
Operative Date/Time/Diagnoses Date of procedure: 06/17/24 Pre-op diagnosis: Left knee osteoarthritis Post-op diagnosis: same Procedure & Clinicians Procedure: Left total knee arthroplasty Same procedure as scheduled: Yes Surgeon: Jeferson Garcia Grain Trimmer: Claribel Russell Anesthesia Type: Spinal, Sedation and Local Operative Notes Estimated Blood Loss (mL): 150 Procedure in detail: Left Gap-Balanced Sabino Persona Medial-Congruent Primary Total Knee A rthroplasty Implants: * Size 10 narrow PPS Cruciate Retaining Femoral Component * Size E OsseoTi Tibial Component * Size 10 Medial Congruent Polyethylene Insert * Unresurfaced Patella Procedure Summary: This 68-year-old patient is biologically male and has transitioned to female. She takes estrogen supplementation. As part of her preoperative workup her child neurologist recommended some additional cardiac testing for assessment prior to surgery. Unfortunately that documentation was not sent to my clinic and we did not realize that this has been requested until after her surgery had been scheduled. We worked to expedite that process and she actually completed her cardiac testing 2 days ago and was cleared by her child neurologist after that was completed. Intraoperatively today I found that she had tremendous bone quality. I had to change out the saw blade on multiple occasions. I therefore utilized uncemented fixation. This is particularly important in her case given her elevated BMI of 39 which places her at increased risk of aseptic loosening. I cut the tibia in varus but she still had residual medial tightness so a p osterior medial release was used to give her a balanced extension gap. Procedure in Detail: This patient was seen preoperatively and evaluated for knee pain which was refractory to numerous nonoperative treatment modalities. Their pain correlated with radiographic changes demonstrating significant degeneration in the knee joint. The risks and benefits of continued nonoperative management versus operative management were discussed at length and all of the patient?s questions were answered. Additional educational materials providing further details beyond our discussion in clinic were provided via a publicly available patient education video which included the incidence of medical complications associated with total knee arthroplasty, reasons for revision following total knee arthroplasty, and patient satisfaction rates following total knee arthroplasty. That video can be accessed at [email or web address] . With this understanding of the risks inherent to the procedure, the patient elected to move forward with operative management. Following preoperative optimization, the patient was scheduled for surgery. The patient was met in the preoperative holding area the day of the procedure and all questions were answered. The patient?s nares were swabbed with betadine in order to decolonize them from MRSA. Informed consent was signed and the left limb was marked with indelible ink.? The patient was brought back to the operating room where anesthesia was induced. The patient was transferred to the operating table and all bony prominences were padded. The operative site was prepped and draped in the usual sterile fashion. A second prep stick was utilized following drape placement. The incision was marked corresponding to the medial aspect of the tibial tubercle and the patella. Ioban was wrapped circumferentially around the knee. Prior to incision, tranexamic acid and cefazolin were administered. Templating images were displayed. A timeout procedure was performed verifying the patient?s identity, medical comorbidities, allergies, relevant medications, anesthesia type and the surgical plan. All present were in agreement. The assistance of a physician front desk assistant was required for positioning, room setup, soft tissue retraction and wound closure. Without this assistance, the procedure would have been significantly more challenging and time consuming.?? The tourniquet was inflated prior to incision. I made an anterior incision over the knee, dissected through the subcutaneous tissues and identified the lateral border of the VMO. Medial and lateral soft tissue flaps were developed. A mid- vastus arthrotomy was performed ensuring that adequate capsular tissue would remain for closure at the conclusion of the procedure. The hip was brought into extension and the medial soft tissues were released off the joint line of the tibia. Tissue overlying the distal anterior femur was released to allow for later assessment for anterior notching but left in place. A portion of the retropatellar fat pad was excised while protecting the patellar tendon. The patella was everted. The patella was not resurfaced. Osteophytes were excised and a lateral facetectomy was performed. The patella was released from its everted position.?? I flexed the knee to 90 degrees and placed retractors to allow access to the notch. An opening reamer was used to gain access to the femoral canal and an intramedullary david was introduced into the canal. Diaphyseal fit was obtained in order to allow a distal femoral resection at 5 degrees relative to the anatomic axis. A +1 resection was planned and assessed using an cyndi wing. I then made the cut using a sagittal saw. This provided additional access to the femoral notch. The ACL and PCL were excised. Retractors were placed on the lateral and medial tibia. I hyperflexed the knee while externally rotating it to sublux the tibia anteriorly. I placed a Prateek retractor posteriorly and used this to provide additional anterior subluxation. The remainder of the PCL root was released. An extramedullary guide was positioned for a resection in varus to match her nome anatomy. A +2 resection off the medial tibia was planned and the tibial cutting jig was pinned in place. I evaluated the cut depth, varus- valgus alignment and slope of the planned tibial resection and deemed them satisfactory. I cut the tibia with a sagittal saw while using retractors to protect the MCL, patellar tendon, and posterolateral structures.? The knee was repositioned in extension and the Fuzion soft tissue balancing gauge was introduced. This demonstrated that there was excess tension medially relative to laterally. It opened to 4 medially and 8 laterally. I therefore performed a posterior medial release with the knee in hyperflexion. This improved the gap symmetry as the medial side now open to 6. When 40 pounds of force was applied to the Fuzion device, the extension gap opened to 10 mm. I moved the knee into 90 degrees of flexion, and the Fuzion device was recalibrated by removing a 9 mm herman to allow assessment of the flexion gap. The Fuzion was placed perpendicular to the resected surface of the tibia and the resected surface of the distal femur. Forty pounds of traction was applied to match the tension of the extension gap. This externally rotated the femur to 8 degrees. Pins were placed in the 10 mm holes. Appropriate sizing was determined and a 4-in-1 block was placed. This was double checked using the Fuzion device to ensure that it would open to an equal distance as the extension gap when the same amount of force was applied. The Fuzion block was also used to assess flexion gap symmetry. An cyndi wing was used to ensure there would be no anterior notching. Retractors were placed to protect the soft tissues during resection. Captured cuts were performed with a sagittal saw for the anterior and posterior femur as well as the corresponding chamfers.?A laminar conceptor and retractors were used to expose the posterior knee and the menisci and posterior osteophytes were removed. Trial components were placed and the construct was assessed. Range of motion was assessed by ensuring the knee could achieve full extension and assessing maximum passive knee flexion by elevating the femur and allowing the heel to passively fall towards the buttock. Gap symmetry was assessed by stressing the medial and lateral compartments in both extension and flexion. Laxity was assessed in both extension and flexion and the polyethylene trial was adjusted with shims as necessary. Patellar tracking was assessed with knee flexion. Once satisfied with the construct, I moved forward with implant insertion. Lug holes were drilled in the femur and the tibia was prepped ensuring appropriate sizing and rotation relative to the tibial tubercle.?? The bony ends were irrigated. Portions of the anterior chamfer cut were utilized as a cement restrictor in the femur. I impacted the tibial component into place. The tibia was reduced underneath the femur. I placed the femoral component as well as the intended polyethylene trial. I brought the knee into extension and manually pressurized the construct. The knee was bathed in a dilute mixture of betadine and peroxide. A mixture of Ropivacaine, Epinephrine, Clonidine and Toradol was infiltrated throughout the soft tissues into structures including the VMO, patellar tendon, quadriceps tendon, MCL and femoral periosteum. The knee was copiously irrigated with pulse lavage. The knee was again trialed. Range of motion was assessed by ensuring the knee could achieve full extension and assessing maximum passive knee flexion by elevating the femur and allowing the heel to passively fall towards the buttock. Gap symmetry was assessed by stressing the medial and lateral compartments in both extension and flexion. Laxity was assessed in both extension and flexion and the polyethylene trial was adjusted with shims as necessary. Patellar tracking was assessed with knee flexion. The tourniquet was let down and the polyethylene trial was removed. I inspected the knee for any residual bleeding. Once hemostasis was achieved I inserted the final polyethylene and ensured appropriate engagement of the dovetail locking mechanism.?? The arthrotomy was closed with non-absorbable interrupted suture ensuring that this extended to the top of the arthrotomy. This was backed up with running barbed suture throughout the arthrotomy. The skin was closed with 2-0 and 3-0 sutures. Surgical glue was applied and a soft dressing was placed.?The sponge, instrument and needle counts were reported as being correct at the end of the case.??No obvious complications occurred. The patient was transferred from the operating table back to a stretcher. The patient emerged from anesthesia without difficulty and was taken to the PACU in a stable condition.? Plan for aftercare: * Weightbearing as tolerated * Aspirin 81 twice per day for DVT prophylaxis * Multimodal pain regimen with no IV opioids ordered * Anticipate discharge home tomorrow * Follow up at [facility] in 2 weeks * Detailed postoperative instructions available at [email or web address]
[2024-06-17] MEDS: ACETAMINOPHEN 325 MG TABLET 650 MG PO ×2 (17:59→22:55)
[2024-06-17] MEDS: LACTATED RINGERS 1,000 ML 100 ML IV (17:59)
[2024-06-17] MEDS: IBUPROFEN 600 MG TABLET PO ×2 (18:00→22:55)
[2024-06-17] MEDS: TRAMADOL 50 MG TABLET PO ×2 (18:53→22:58)
[2024-06-17] MEDS: DOCUSATE 100 MG CAPSULE PO (20:50)
[2024-06-17] MEDS: PANTOPRAZOLE DR 20 MG TABLET PO (20:50)
[2024-06-17] MEDS: ESCITALOPRAM 10 MG TABLET PO (20:50)
[2024-06-17] MEDS: ASPIRIN EC 81 MG TABLET PO (20:50)
[2024-06-17] MEDS: GABAPENTIN 600 MG TABLET PO (20:50)
[2024-06-17] MEDS: SPIRONOLACTONE 25 MG TABLET 50 MG PO (20:51)
[2024-06-17] MEDS: METOPROLOL ER 50 MG TABLET PO (20:51)
[2024-06-18 00:02] VITALS: BP 136/86; PULSE 88; RESP 18; TEMP 36.4; O2SAT 94
[2024-06-18] MEDS: OXYCODONE IR 5 MG TABLET PO (02:50)
[2024-06-18] MEDS: ACETAMINOPHEN 325 MG TABLET 650 MG PO (04:40)
[2024-06-18] MEDS: IBUPROFEN 600 MG TABLET PO (04:40)
[2024-06-18] MEDS: CEFAZOLIN VIAL 3 GM in SODIUM CHLORIDE 0.9% 100 ML IV (05:43)
[2024-06-18] MEDS: LEVOTHYROXINE 75 MCG TABLET PO (05:43)
[2024-06-18] MEDS: TRAMADOL 50 MG TABLET PO ×2 (05:47→10:40)
[2024-06-18 05:51] LABS: Hematocrit 29.9 % (41-53); Hemoglobin 10.1 g/dL (13.5-17.5)
[2024-06-18 08:00] VITALS: BP 109/64; PULSE 67; RESP 16; TEMP 36.8; O2SAT 92
--- NOTE | 2024-06-18 09:16 | CM.DANOTE ---
Addendum entered by CALEB Jimenez 06/18/24 13:14: ADD: SW spoke to Ortho PA and PT and pt medically stable to d/c home today with spouse and outpt PT and Ortho PA placed PT orders for [facility] per pt's request. Per Rn, d/c instructions provided and spouse provided transport home shortly after lunch. BF Original Note: Patient is a 68 yo female who was admitted [facility] on 06/17/24 for LTKA. Pt has [facility] for insurance and her PCP is Dr. Meghan Mix at [facility]. EMR was reviewed. Per Ortho PA, pt tolerated procedure well and pain seems controlled and to work with PT today to confirm plan of discharge home later today. PT ordered and pending. SW met bedside with pt and explained role and RESIDENT PHYSICIAN IN RADIOLOGY about to get pt to bathroom and pt confirms that she lives in [place] just a couple blocks away with her Urmila and they are both independent at baseline. Pt's mobility has been limited due to knee pain at baseline. Pt denies any hx of HH or SNF and preference is home with when stable. POA is spouse Urmila and her adult son. Pt requested SW to call her Urmila to request she be bedside this morning when PT completes eval. SW called spouse Urmila and she confirms she is getting ready and will be bedside soon to be present for CG training/education and observation. Plan: SW to follow closely after PT eval to confirm safe d/c home and r/o HH and any further identified discharge planning needs. CALEB Jimenez Discharge Planning/Care Management CM Discharge Assessment Start: 06/18/24 09:15 Freq: Status: Active Protocol: Document 06/18/24 09:15 BF (Rec: 06/18/24 09:16 [id number]) Discharge Planning Assessment Assigned Wood Pile Driver Operator CALEB Goddard DPOA/Assigned Designee Name spouse Urmila Contact Information [phone] Advance Directives? Yes Advance Directives on File No History Provided By Patient,Significant Other, Medical Record Has Patient been admitted in last 30 No days? Prior Living Arrangements House Household Members spouse Type of transporation used prior to Drives own vehicle admit Independent with ADL's Yes Is patient alert and oriented? Yes Caregiver for Another No Community Services used prior to Physical Therapy admission: DME Already Rented / Owned FWW / Walker Comment Pending PT eval outpt vs HH Barriers to Discharge No Discharge Plan Home Transportation Arrangement Spouse will be bedside and can transport home at d/c Additional Comment Pending PT eval to r/o HH Whiteboard Updated in Patient Room with Yes name and ext. # of Wood Pile Driver Operator Review Status In Process Please Provide Date Initial DC 06/18/24 Assessment Was Performed Next Review Type Continued Stay Review Pre-Anesthesia Assessment Start: 06/07/24 12:43 Freq: Status: Active Protocol: Document 06/07/24 12:43 CAB (Rec: 06/07/24 13:57 CAB [id number]) Pre-Anesthesia Assessment PAC Comment Phone assess 06/07/24 Patient Information Reviewed Via Phone Assessment Diagnostic Results BMP/CMP,CBC,Chest X-Ray,EKG Comment Labs/EKG @ [facility] 05/20/24 Primary Care Provider Meghan Mix Comment Clearance form 05/18/24 scanned and in surgery folder Medical Clearance Received Yes Seen Specialist in Last 12 Months Yes Specialist Seen Biostatistics Professor,Orthopedist, Urologist Primary Language Lithuanian After School Teacher Required No Height 180.34 cm Weight 131.542 kg Body Mass Index (BMI) 40.4 Hearing Ability Normal Visual Assist Glasses Dentition Type Teeth, Natural Present,Teeth, Missing Barriers to Learning None Hx Anesthesia Reactions No Hx Family Anesthesia Reaction No Hx Malignant Hyperthermia No Hx Blood Transfusions No Anesthesia Review Requested No 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 No Does patient have MOREL/SOB Yes: My obesity makes me short of breath Hx Sleep Apnea Yes CPAP/BIPAP use prescribed and used routinely Will Bring CPAP/BIPAP DOS Yes Currently Taking a Beta Charisse Yes: Metoprolol Hx Chest Pain No Hx SOB Yes: My obesity makes me short of breath Hx Syncope or Dizziness No Anti-Coagulant Therapy No Has a Biostatistics Professor Yes: Pre-op 05/12/24-advised Lexiscan & Echo, not completed Biostatistics Professor name Dr. Rosario @ [facility] Hx Pacemaker/ICD No Pacemaker Rep Required? No Diet Type At Home Regular Dysphagia No Gastrointestinal Symptoms Constipation,Reflux Urinary Catheter Present No Hx Urinary Self Catheterization No Diabetes No HgbA1C 5.7 Date 05/20/24 Hx Drug Resistant Organism No Presence of External or Internal Medical Yes: Lumbar hardware, CPAP, Devices left foot Comment No covid-19 symptoms in 8 weeks Marital Status Lives With spouse Current Living Arrangements House Number of Floors (Floors) One Floor Number of Stairs To Enter/Railing? 7 steps Support System Spouse Does the Patient Have Assistance After Yes Surgery Patient Discharge Plan Description Return Home Comment Pt advised same day surgery per surgeon Feels Safe in Current Environment Yes Been Physically Hurt or Threatened By a No Person in Current Environment Do you have thoughts of harming yourself None or others? Are you currently considering suicide? No Do you have a plan to hurt yourself or No Plan others? Do You Have Any Spiritual Beliefs That No May Affect Your HC Choices? Do You Have Any Cultural Practices That No May Affect Your HC Choices? Comment Atheist Who Can We Speak to About Patient's Care Family, friends Identifying Code for Release of Patient Declines to issue Information Health Care Proxy/Next of Kin Urmila () Health Care Proxy Emergency Contact Name Urmila () Emergency Contact Advance Directives? Yes Advance Directives on File No Requested Patient Bring Advanced Yes Directives DOS Power of Rag Boiler No PAC Instructions Assistance for 24 hours post- op,Bring CPAP/BIPAP,Do not shave/clip surgical site, Durable medical equipment, Medications to take/avoid,No ETOH/petroleum product on skin DOS,NPO,Post-op transportation,Pre-surgical wash,Sturdy shoes/comfortable clothes,Do not bring valuables and remove jewelry
--- NOTE | 2024-06-18 09:25 | PT.IIE ---
Current Diagnoses Unilateral primary osteoarthritis, left knee (06/17/24) Presence of unspecified artificial knee joint (06/17/24) Surgery Performed Operation Date: 06/17/24 13:45 Actual Procedures p Total Knee Arthroplasty(Left) - Jeferson Garcia MD Surgical History (Last Updated 06/07/24 @ 13:15 by Kary Dahl, RN) H/O breast augmentation (2004) History of lumbosacral spine surgery History of lumbosacral spine surgery History of lumbosacral spine surgery (2013) History of lung biopsy (07/2013) History of surgery History of umbilical hernia repair (05/02/09) Hx of foot surgery Medical History (Last Updated 06/07/24 @ 12:54 by Kary Dahl, RN) BPH w urinary obs/LUTS HTN (hypertension) Hyperlipidemia, unspecified Hypothyroidism Lumbar radiculopathy Ufhb-ik-[id number] transgender person Peripheral neuropathy PSVT (paroxysmal supraventricular tachycardia) Pulmonary fibrosis Raynaud's disease RBBB (right bundle branch block) Sarcoid arthritis Sarcoidosis (2013) Shoulder pain, right Spondylolysis Transgender (~1974) Urinary incontinence Physical Therapy Inpatient Evaluation/Re-Eval M1 PT/OT-IP Prior Functional Status Start: 06/18/24 12:48 Freq: NEEDED Status: Discharge Protocol: Document 06/18/24 09:25 AB (Rec: 06/18/24 13:07 AB [id number]) Medical Review Prior Functional Status Medical History Reviewed Yes Communication able to make needs known Mobility and Gait pt stated that she was independent with all mobilities and ambulation without AD Social History Household Members spouse Living Arrangements House Number of Floors (Floors) One Floor Number of Stairs To Enter/Railing? 7 stps R rail ascending Home Environment Standard Height Toilet,Tub/ Shower,Tub/Shower Doors Home Equipment Front Wheel Walker,Quad Cane, Shower Seat with Backrest,Hand Held Shower,Grab Bars In Shower M2 PT-IP Current Condition Start: 06/18/24 12:48 Freq: NEEDED Status: Discharge Protocol: Document 06/18/24 09:25 AB (Rec: 06/18/24 13:07 AB [id number]) Physical Therapy Current Condition Current Condition Evaluation Date 06/18/24 Treatment Diagnosis s/p L TKA; difficulty in walking Onset Date M3 PT-IP Subjective Start: 06/18/24 12:48 Freq: NEEDED Status: Discharge Protocol: Document 06/18/24 09:25 AB (Rec: 06/18/24 13:07 AB [id number]) Subjective Physical Therapy Visit Type Type Initial Evaluation Visit Start Time Visit Stop Time 11:05 Notes pt seen for split visits: 925 am to 948 am and 1022 am to 1105 Number of PHYSICAL EDUCATION AIDE Visits 0 Physical Therapy Visit Comments Patient Comments agreeable to do PT Therapy Pain Assessment Pain When Pain Assessed At Rest Pain Present Pain Present Pain Reported Location Left Knee Intensity 5 Scale Used Numeric (0 - 10) Pain Management Techniques Apply Cold,Distraction, Modification of Treatment,Re- positioning,Timing of Activity with Medications M4 PT-IP Mobility and Gait Start: 06/18/24 12:48 Freq: NEEDED Status: Discharge Protocol: Document 06/18/24 09:25 AB (Rec: 06/18/24 13:07 AB [id number]) PT-Bed Mobility Assessment Supine to Sit Supine to Sit Standby Assistance Sit to Supine Sit to Supine Standby Assistance PT-Transfer Assessment Sit to and From Stand Sit to and from Stand Contact Guard Assistance, Minimal Assistance,1 Person Assistance,Use of Upper Extremities Equipment Transfer Assistive Device Gait Belt,Front Wheeled Walker Orthotic/Prosthetic Devices or Brace: No Transfers Transfer Destination Bed,Chair Transfer Technique ambulated Transfer Ability Level of Assist Contact Guard Assistance,1 Person Assistance,Use of Upper Extremities Comments Mobility Comments checked on pt and pt using the toilet. sit to stand from the toilet min A and cues. pt ambulated using FWW CGA to EOB . obtained PLOF and home set up. pt completed sit<>supine SBA. pt completed sit to stand from EOB CGA and step transfer to chair using FWW CGA. spouse arrived. Caregiver training initiated. educated spouse on how to use safety belt and how to assist pt. spouse was able to put safety belt on pt. assisted pt with sit to stand min A. instructed pt to sit back down on chair. educated pt for sit <>stand techniques. pt repeated sit to stand from chair again CGA. pt ambulated in room using fWW 30 ft CGA with spouse assisiting. pt sat back on chair. positioned pt on the chair. left pt with nurse. checked back on pt after ~ 45 min. continues caregiver training. spouse was able to put safety belt on pt. assisted pt with ambulated to w/c ~ 30 ft using fWW SBA to CGA. pt with c/o increase L knee pain. informed nurse for pain meds. stair climbing training. educated pt and spouse on how to do stairs using R rails + quad cane. pt completed up/ down steps R rail + quad cane with spouse assisting min A and cues. assisted pt back to her room. sit to stand from w/c CGA and ambulated to bed using FWW SBA to CGA. sit to supine SBA. positioned pt in bed. ice pack provided. call light and table placed within reach. pt and spouse without further concerns. Gait Assessment Gait Gait Assistance Required: Standby Assistance,Contact Guard Assist,1 Person Assist Distance (Feet) 30 Able to Maintain Weight Bearing Status Yes During Gait Assistive Devices Assistive Device Gait Belt,Front Wheeled Walker Orthotic/Prosthetic Devices or Brace: No Gait Deviations General Gait Pattern Antalgic,Decreased Stride Length,Decreased Feet Clearance Factors Limiting Gait Function Factors Limiting Gait Function Decreased Activity Tolerance, Decreased Strength,Limited Range of Motion,Pain,Poor Balance Stair Climbing Assessment Evaluation Level of Assist On Stairs Minimal Assistance,1 Person Assistance Devices Stair Climbing Assistive Devices Small Base Quad Cane,Right Railing Technique/Endurance Stair Climbing Direction Ascend and Descend Stair Climbing Technique Step to Step Number of Steps Climbed 3 Query Text: Stair Climbing Set # Repetitions (reps) 1 PT-Balance Assessment Sitting Balance and Reactions Static Sitting Balance Ability Normal Dynamic Sitting Balance Ability Good Standing Balance and Reactions Static Standing Balance Ability Fair Dynamic Standing Balance Ability Fair Device Used FWW M5 PT-IP Objective Assessments Start: 06/18/24 12:48 Freq: NEEDED Status: Discharge Protocol: Document 06/18/24 09:25 AB (Rec: 06/18/24 13:07 AB [id number]) Orientation Orientation/Cognition Level of Alertness Alert Orientation Name,Age,Birthday,Month,Date, Year,Day of Week,Place, Situation Language Function Ability No Deficits Noted Safety Awareness Understands Safety Issues Memory Description No Deficits Noted Gross Range of Motion Lower Extremity ROM Impairments L knee flexion: ~ 70 deg Strength Lower Extremity Strength Assessment Left Impaired Hip 4-/5 Knee 3+/5 Coordination Assessment Gross Coordination Gross Coordination WNL Sensation Assessment Sensation Gross Sensation WNL Muscle Tone Muscle Tone WNL Yes M6 PT-IP Treatment Start: 06/18/24 12:48 Freq: NEEDED Status: Discharge Protocol: Document 06/18/24 09:25 AB (Rec: 06/18/24 13:07 [id number]) Physical Therapy Treatment Exercises Exercises Heel Slides Education Education Provided Precautions,Weight Bearing Status,Post-Op Packet,Safety M7 PT-IP Assessment and Plan Start: 06/18/24 12:48 Freq: NEEDED Status: Discharge Protocol: Document 06/18/24 09:25 AB (Rec: 06/18/24 13:07 [id number]) PT Summary Assessment and Plan Potential Rehabilitation Potential Good Status of Condition at Evaluation Stable Summary Impairments Pain,ROM,Strength,Balance, Coordination,Sensation,Tone, Cognition,Bed Mobility, Transfers,Gait,Activity Tolerance Assessment Summary pt is a 68 y/o M s/p L TKA and is WBAT. pt requiring SBA for ambulation using FWW and min A for stair climbing. caregiver training conducted and spouse was able to assist pt. pt has outpt PT set up. pt may go home when medically stable. Goals Bed Mobility Goal Independent Transfer Goal Independent,Front Wheeled Walker Gait Goal Independent,Front Wheel Walker Gait Distance 200 Other Goals up/down 7 steps R rail SBA Days to Meet Goals 5 Frequency of Treatment Frequency Of Treatment Twice a Day Treatment Plan Physical Therapy Treatment Plan Bed Mobility Training,Transfer Training,Gait Training, Therapeutic Exercise,Balance Retraining,Post Op Education, Discharge Planning,Hot or Cold Pack,Neuromuscular Re-ed, Coordination Retraining,Manual Therapy Weight Bearing Status Weight Bearing Status Weight Bear as Tolerated Allowed Weight Bearing Amount (enter % LLE WBAT or #) (%) Recommendations To Nursing Amount of Assist Needed 1 Person Assist Discharge Recommendations PT Discharge Recommendations Home with Assistance, Outpatient PT Transportation Needs at Discharge Private Vehicle - PT assist 1PA
[2024-06-18] MEDS: estradioL 1 MG TABLET 2 MG PO (09:31)
[2024-06-18] MEDS: PANTOPRAZOLE DR 20 MG TABLET PO (09:31)
[2024-06-18] MEDS: ASPIRIN EC 81 MG TABLET PO (09:31)
[2024-06-18] MEDS: polyethylene glycoL 3350 17 GM POWD.PACK PO (09:31)
[2024-06-18] MEDS: GABAPENTIN 600 MG TABLET PO (09:32)
[2024-06-18] MEDS: DOCUSATE 100 MG CAPSULE PO (09:32)
[2024-06-18] MEDS: FINASTERIDE 5 MG TABLET PO (09:32)
[2024-06-18] MEDS: LORATADINE 10 MG TABLET PO (09:32)
[2024-06-18] MEDS: SPIRONOLACTONE 25 MG TABLET 50 MG PO (09:32)
[2024-06-18] MEDS: ESCITALOPRAM 10 MG TABLET PO (09:32)
[2024-06-18 09:34] VITALS: BP 109/64; PULSE 67
[2024-06-18] MEDS: METOPROLOL ER 50 MG TABLET PO (09:34)
--- NOTE | 2024-06-18 10:33 | P.DS_ITS ---
History of Present Illness History of Present Illness Chief complaint: left TKA Narrative: Meghan is a pleasant 68 year old female who is POD# 1 s/p left total knee arthroplasty w/ Dr. Garcia. This morning patient reports she is doing well overall but is still having some moderate-severe pain. She feels the Tramadol has been controlling her pain better than Oxycodone and is requesting an outpatient Rx for this. She has her other post-op pain medication at home already. We discussed not taking the two medications together, she agrees and states understanding. She regularly takes Flexeril and Gabapentin for pain control at home as well. She lives at home w/ and is hopeful to d/c to home w/ her today. She has post-op PT appts scheduled at [facility] already but is wondering if she could get a referral to PT instead as it is much closer for her. She states she was able to void a small amount in the toilet this morning but has had some difficulty w/ urination, she was started on a new urinary incontinence medication yesterday by Yordy Lin. She worked w/ PT once today already and PT plans to return later for caregiver training and to practice steps. Operative Date/Time/Diagnoses Date of procedure: 06/17/24 Pre-op diagnosis: Left knee osteoarthritis Post-op diagnosis: same Procedure & Clinicians Procedure: Left total knee arthroplasty Same procedure as scheduled: Yes Surgeon: Jeferson Garcia Broaching Machine Repairer: Claribel Russell Anesthesia Type: Spinal, Sedation and Local Operative Notes Estimated Blood Loss (mL): 150 Procedure in detail: Left Gap-Balanced Sabino Persona Medial-Congruent Primary Total Knee Arthroplasty Implants: * Size 10 narrow PPS Cruciate Retaining Femoral Component * Size E OsseoTi Tibial Component * Size 10 Medial Congruent Polyethylene Insert * Unresurfaced Patella Discharge Providers Provider Discharge Date: 06/18/24 Primary care physician: Meghan Mix MD Consults: 06/17/24 06:00 Consult to Anesthesiology Routine Comment: Consulting Provider: Anesthesiologist Reason for consultation: Regional block for post operative pain control 06/17/24 17:05 Consult to Discharge Planning Routine Comment: Consult to Occupational Therapy Evaluate & Treat Comment: Physician Instructions: Evaluate and treat Consult to Physical Therapy Evaluate & Treat Comment: Physician Instructions: postop TKA protocol Discharge provider: Sue Hodges, PA-C Summary Hospital Course Discharge Diagnosis: stable s/p L TKA Hospital Course: uncomplicated hospital course Exam Vital Signs (past 8 hours): - 06/18/24 08:00 06/18/24 09:34 Temperature 98.3 F Pulse Rate 67 67 Respiratory Rate 16 Blood Pressure 109/64 109/64 Pulse Oximetry 92 Oxygen Flow Rate 0 Fraction of Inspired Oxygen 14 SaO2/FiO2 Ratio 685 Oxygen Delivery Method Nasal Cannula Oxygen Flow Rate 0 Narrative Exam Narrative: Patient sitting comfortably in bedside chair during our interview today. No acute distress. AOx3. 5/5 strength with DF, PF, EHL bilaterally. Knee flexion and extension intact. Decreased sensation in bilateral feet, patient reports this is a chronic problem for her and not new since surgery. No new or worsening numbness since surgery. Calves soft and non-tender bilaterally. SCDs are on and functioning. Brisk capillary refill, pulses intact. Post-surgical Aquacel dressing clean, dry and intact over the left knee without drainage. Objective Labs 06/18/24 05:41 Labs: Laboratory Results - last 24 hr 06/18/24 05:41 Hgb 10.1 L Hct 29.9 L PFSH Medical History (Updated 06/13/24 @ 16:26 by Meghan Mix MD) Transgender (~1974) HTN (hypertension) PSVT (paroxysmal supraventricular tachycardia) RBBB (right bundle branch block) BPH w urinary obs/LUTS Urinary incontinence Shoulder pain, right Hyperlipidemia, unspecified Peripheral neuropathy Sarcoidosis (2013) Pulmonary fibrosis Ryjj-ij-rmdivg transgender person Hypothyroidism Sarcoid arthritis Raynaud's disease Spondylolysis Lumbar radiculopathy Surgical History (Updated 06/17/24 @ 16:21 by Claribel Russell PA-C) History of surgery H/O breast augmentation (2004) Hx of foot surgery History of lumbosacral spine surgery (2013) History of lumbosacral spine surgery History of lumbosacral spine surgery History of lung biopsy (07/2013) History of umbilical hernia repair (05/02/09) Family History Son No problems noted. Social History household members: spouse Smoking Status: Never smoker alcohol intake: never Discharge Assessment & Plan Assessment and Plan Assessment: stable s/p L TKA Plan of Treatment: 1) Plan to discharge to home today with pending PT evaluation and voiding trial. Encouraged patient to drink fluids. She did not take the Mirabegron this AM. 2) Continue multimodal pain management with ice to the knee for additional pain control. Tramadol Rx sent to patients retail pharmacy today. She will also take Mobic w/ Omeprazole for baseline pain control. 3) ASA b.i.d. for DVT prophylaxis. 4) Start outpatient physical therapy to work on range of motion and mobility. Will send referral to PT. 5) Keep dressing intact, clean, dry until 2 week postop appointment. No soaking the incision site in pools or tubs. No topical ointments or creams to the incision site. 6) Follow up at [facility] orth[facility]ics in 2 weeks for a postop appointment and wound check. All patient and her wifes questions were answered, they demonstrates understanding and are in agreement with the plan. Call our office if any questions or concerns arise. Discharge Plan Discharge Plan Patient Disposition: Home Discharge orders & Medications Discharge Orders: Discharge (Order); Ordered 06/18/24 Ordered By: Sue Hodges Prescriptions: New oxycodone 5 mg tablet 5 mg PO Q4-6H PRN (Reason: pain (scale score 4-6)) Qty: 30 0RF meloxicam 7.5 mg tablet 7.5 mg PO DAILY PRN (Reason: mild pain) Qty: 30 0RF Rx Instructions: Do not take with other NSAIDs. Discontinue use if reflux worsens when taking. aspirin 81 mg tablet,delayed release (DR/EC) 81 mg PO BID Qty: 60 0RF tramadol 50 mg Tablet 50 mg PO QID PRN (Reason: Pain, Moderate (4-6)) Qty: 20 0RF docusate sodium 100 mg Capsule 100 mg PO BID Qty: 30 0RF Continued gabapentin 600 mg tablet 600 mg PO TID Qty: 180 3RF cetirizine 10 MG tablet 10 mg PO QDAY Qty: 0 polyethylene glycol 3350 [Miralax] 119 GM powder 17 gm PO Q DAY Qty: 0 potassium gluconate 500 MG tablet 595 mg PO QDAY Qty: 0 furosemide 40 mg tablet 60 mg PO QDAY Qty: 135 0RF finasteride 5 mg tablet 5 mg PO QDAY Qty: 90 1RF cyclobenzaprine 10 mg tablet 10 mg PO BID Qty: 180 3RF levothyroxine 75 mcg tablet 75 mcg PO DAILY Qty: 90 3RF estradiol [Estrace] 2 mg tablet 2 mg PO DAILY Qty: 90 4RF metoprolol succinate 50 mg tablet extended release 24 hr 50 mg PO BID Qty: 180 0RF zolpidem 10 mg tablet 10 mg PO BEDTIME Qty: 30 5RF trazodone 100 mg tablet 100 - 200 mg PO BEDTIME PRN (Reason: insomnia) Qty: 90 3RF diclofenac sodium [Voltaren Arthritis Pain] 1 % gel 2 g topical QID Qty: 100 3RF Rx Instructions: apply to right achilles tendon omeprazole 20 mg capsule,delayed release(DR/EC) 20 mg PO BID Qty: 180 2RF spironolactone 100 mg tablet 50 mg PO BID Qty: 90 0RF mirabegron 50 mg tablet extended release 24 hr 50 mg PO DAILY Qty: 30 12RF oxycodone 5 mg tablet 5 mg PO DAILY PRN (Reason: pain) Qty: 30 0RF escitalopram oxalate 10 mg tablet 10 mg PO BID Follow up/Referrals: Jeferson Garcia MD [Physician] - 06/29/24 3:20 pm (Follow up at [facility] in [place].) Meghan Mix MD [Primary Care Provider] - Diet/Activity/Treatments Diet: Diet as Tolerated Activity: Weightbearing as tolerated. Walk frequently! Cold/Heat Therapy: Ice to knee as needed for pain. Skin/Wound/Dressing Care Report to your healthcare provider any signs of infection, such as:: chills, fever, night sweats, unusual drainage and unusual redness Dressing: May remove compression sock and shower on 06/19/2024. Leave Aquacel dressing in place until follow up in office. No bathing or otherwise soaking incision. Call the office if the dressing becomes saturated inside. Visit Report/Discharge Packet Instructions: DI for Knee Replacement, DI for Prescription Opioid Use Stand Alone Forms: Patient Portal/API, Surgery Discharge Discharge Data Primary Care Provider: Meghan Mix Attending Provider: Jeferson Garcia Quality VTE Deep Vein Thrombosis/Pulmonary Embolism Present on Admission: No
[2024-06-18 11:12] VITALS: BP 120/61; PULSE 67
[2024-06-18] MEDS: SODIUM CHLORIDE 0.9% FLUSH 10 ML IV (11:14)
--- NOTE | 2024-06-18 13:04 | PC.NURSE ---
Day shift discharge: Pt left floor via W/C to family private vehicle to home. Pt took all belongings, A&Ox4, vitals stable, education given, IV removed intact.
== END 2024-06-18 12:35 | disposition home or self-care (01) ==
LOC: OR 11:57 → AC 11:58
PROVIDERS: PCP Student in an Organized Health Care Education/Training Program; Referring Provider Orthopaedic Surgery Adult Reconstructive Orthopaedic Surgery; Visit Provider Orthopaedic Surgery Adult Reconstructive Orthopaedic Surgery
PROC: 0SRD0JZ Replacement of Left Knee Joint with Synthetic Substitute, Open Approach (ICD-10-PCS; CPT 27447; principal; 2024-06-17 13:45)
DX: M17.12 Unilateral primary osteoarthritis, left knee (principal); I10 Essential (primary) hypertension; I45.10 Unspecified right bundle-branch block; I47.19 Other supraventricular tachycardia; M25.762 Osteophyte, left knee
CPT/HCPCS: 27447; 36415; 73560; 85014; 85018; 97161; 97530; C1776; C1713; J0690; J1100; J2250; J2405; J2704; J3010

== ENCOUNTER → 2024-08-10 11:33 | Outpatient (CLI) | payer MEDICARE, SELFPAY ==
[2024-06-17 17:43] VITALS: BMI 40.1
--- NOTE | 2024-08-10 11:34 | DI.RAD.S_ITS ---
PROCEDURE: XR LUMBAR SPINE MIN 4V INDICATIONS: BACK PAIN TECHNIQUE: 5 views of the lumbar spine were acquired, including bilateral oblique views. COMPARISON: None. FINDINGS: Bones: 5 nonrib-bearing vertebrae are present. Levo scoliotic curvature. L4 through S1 posterior spinal fixation discectomy. Straightening of the normal lumbar lordosis. There is multilevel facet arthropathy, worse at L4-5 and L5-S1. Multilevel disc height loss with degenerative endplate changes and spurring is present. No vertebral body compression fractures. No suspicious bony lesions. Soft tissues: Overlying bowel gas pattern is normal. No suspicious soft tissue calcifications. Oblique images: No definite pars defects, however significant facet arthropathy and hardware limits evaluation.. IMPRESSION: Multilevel degenerative changes of the lumbar spine status post L4 through S1 posterior spinal fixation. Hardware appears intact. Dictated by: Clarence Christian M.D. on 08/10/2024 at 12:36 Approved by: Clarence Christian M.D. on 08/10/2024 at 12:37
== END ==
PROVIDERS: PCP Student in an Organized Health Care Education/Training Program; Referring Provider Physical Medicine & Rehabilitation; Visit Provider Physical Medicine & Rehabilitation
DX: M47.816 Spondylosis without myelopathy or radiculopathy, lumbar region (principal); M47.817 Spondylosis without myelopathy or radiculopathy, lumbosacral region; M54.50 Low back pain, unspecified; G62.9 Polyneuropathy, unspecified; E66.9 Obesity, unspecified; F64.0 Transsexualism; Z98.1 Arthrodesis status; Z98.890 Other specified postprocedural states
CPT/HCPCS: 72110; 99214

== ENCOUNTER → 2024-08-26 18:40 | Outpatient (CLI) | payer MEDICARE, SELFPAY ==
[2024-06-17 17:43] VITALS: BMI 40.1
--- NOTE | 2024-08-26 18:43 | DI.MRI.S_ITS ---
PROCEDURE: MR LUMBAR SPINE WO CON INDICATIONS: Chronic LBP s/p L4-S1 fusion TECHNIQUE: Noncontrast sagittal T1 spin echo and T2 fast echo, coronal T2, sagittal STIR, and T2 fast spin echo through the lumbar spine. COMPARISON: [facility], CR, XR LUMBAR SPINE MIN 4V, 08/10/2024, 11:35. FINDINGS: Image quality: Excellent. Alignment and Curvature: 5 lumbar type vertebral bodies are present by plain film. Moderate leftward curvature of the mid/lower lumbar spine. Loss of normal lumbar lordosis. 2 mm of retrolisthesis of L1 on L2. 3 mm of retrolisthesis of L3 on L4. Bone Marrow: Marrow is of normal overall signal. No acute vertebral body compression fractures. Posterior fusion hardware at L4-S1. Moderate reactive signal within the endplates adjacent to the T11-T12 and L2-L3 intervertebral discs. Mild reactive signal within the remaining lumbar and lower thoracic endplates. Spinal Cord: Conus medullaris terminates at the lower L1 level. Visualized cord demonstrates normal signal and size. Paraspinous Soft Tissues: No paravertebral masses. T12-L1: Moderate disc height loss and desiccation. Mild diffuse disc bulge. Mild facet and ligamentum flavum hypertrophy. Mild canal stenosis. Mild bilateral foraminal stenosis. L1-L2: Moderate disc height loss and desiccation. Mild diffuse disc bulge. Mild facet and ligamentum flavum hypertrophy. Mild canal stenosis. Mild bilateral foraminal stenosis. L2-L3: Severe disc height loss and desiccation. Mild diffuse disc bulge/osteophyte. Mild facet and ligamentum flavum hypertrophy. Mild canal stenosis. Mild bilateral foraminal stenosis. L3-L4: Severe disc height loss and desiccation. Mild diffuse disc bulge/osteophyte. Mild bilateral facet hypertrophy. Mild canal stenosis. Mild bilateral foraminal stenosis. L4-L5: Posterior fusion. Mild residual disc bulge/osteophyte. Mild bilateral facet hypertrophy. No significant canal stenosis. Mild right and moderate left foraminal stenosis. L5-S1: Posterior fusion. Mild residual disc bulge/osteophyte. Mild bilateral facet hypertrophy. No significant canal stenosis. Moderate to severe left and mild right foraminal stenosis. Mild left L5 nerve root compression. IMPRESSION: 1. Postsurgical sequelae. 2. Multilevel degenerative disc and facet disease, as well as ligamentum flavum hypertrophy and epidural lipomatosis. 3. Mild multilevel canal stenoses. 4. Multilevel foraminal stenoses, worst at L5-S1 where there is associated intraforaminal nerve root compression. Recommend correlation with clinical symptoms to ascertain relevance of this finding. Dictated by: Joceline Henry M.D. on 08/29/2024 at 11:11 Approved by: Joceline Henry M.D. on 08/29/2024 at 11:16
== END ==
LOC: MRI 18:41
PROVIDERS: PCP Student in an Organized Health Care Education/Training Program; Referring Provider Physical Medicine & Rehabilitation; Visit Provider Physical Medicine & Rehabilitation
DX: M51.17 Intervertebral disc disorders with radiculopathy, lumbosacral region (principal); M51.16 Intervertebral disc disorders with radiculopathy, lumbar region; M48.061 Spinal stenosis, lumbar region without neurogenic claudication; M48.07 Spinal stenosis, lumbosacral region; M47.26 Other spondylosis with radiculopathy, lumbar region; M47.27 Other spondylosis with radiculopathy, lumbosacral region; E88.2 Lipomatosis, not elsewhere classified; G62.9 Polyneuropathy, unspecified; E66.9 Obesity, unspecified; Z98.890 Other specified postprocedural states; Z98.1 Arthrodesis status
CPT/HCPCS: 72148

== ENCOUNTER → 2024-09-09 13:45 | Outpatient (CLI) | payer MEDICARE, SELFPAY ==
[2024-06-17 17:43] VITALS: BMI 40.1
== END ==
PROVIDERS: PCP Student in an Organized Health Care Education/Training Program; Referring Provider Student in an Organized Health Care Education/Training Program; Visit Provider Surgery
DX: G57.83 Other specified mononeuropathies of bilateral lower limbs (principal); L97.522 Non-pressure chronic ulcer of other part of left foot with fat layer exposed; M20.42 Other hammer toe(s) (acquired), left foot; I10 Essential (primary) hypertension; E78.5 Hyperlipidemia, unspecified; G62.9 Polyneuropathy, unspecified; E03.9 Hypothyroidism, unspecified; I73.00 Raynaud's syndrome without gangrene; D86.9 Sarcoidosis, unspecified; Z87.448 Personal history of other diseases of urinary system; I47.19 Other supraventricular tachycardia
CPT/HCPCS: 11042; 99203; 99214

== ENCOUNTER → 2024-09-09 14:43 | Outpatient (CLI) | payer MEDICARE, SELFPAY ==
[2024-06-17 17:43] VITALS: BMI 40.1
--- NOTE | 2024-09-09 14:46 | DI.RAD.S_ITS ---
PROCEDURE: XR FOOT LT MIN 3V INDICATIONS: possible osteomyelitis of second left toe TECHNIQUE: 3 views of the foot were acquired. COMPARISON: [facility], CR, XR FOOT 3+ VIEWS BILATERAL, 07/18/2022, 14:40. FINDINGS: Status post prior correction of hallux valgus with a 1st metatarsal shortening osteotomy with 1st MTP plate and screw arthrodesis. No hardware complication. Mild 1st MTP and hallux inter sesamoid osteoarthritis. Chronic, healed 2nd and 3rd metatarsal shaft fractures. The Lisfranc interval is preserved. The other joint spaces are preserved. No osseous erosions, focal osteopenia, or radiographic evidence of subcutaneous emphysema. Hammertoe deformities of the 2nd-5th digits with minimal focal osteopenia at the 2nd digit distal phalangeal tuft, best identified on the lateral view. IMPRESSION: Possible osteomyelitis at the 2nd digit distal phalangeal tuft. Please correlate with a probe to bone test. Given the hammertoe deformity and the peripheral nature of the area of interest, this region may be obscured by insufficient fat saturation on an MRI of the forefoot without contrast. Dictated by: Jackson Stevens M.D. on 09/09/2024 at 16:12 Approved by: Jackson Stevens M.D. on 09/09/2024 at 16:18
== END ==
PROVIDERS: PCP Student in an Organized Health Care Education/Training Program; Referring Provider Student in an Organized Health Care Education/Training Program; Visit Provider Surgery
DX: G62.9 Polyneuropathy, unspecified (principal); M20.42 Other hammer toe(s) (acquired), left foot; G57.83 Other specified mononeuropathies of bilateral lower limbs; L97.522 Non-pressure chronic ulcer of other part of left foot with fat layer exposed; I10 Essential (primary) hypertension; E78.5 Hyperlipidemia, unspecified; E03.9 Hypothyroidism, unspecified; I73.00 Raynaud's syndrome without gangrene; D86.9 Sarcoidosis, unspecified; I47.19 Other supraventricular tachycardia; Z87.448 Personal history of other diseases of urinary system
CPT/HCPCS: 11042; 73630; 99214

== ENCOUNTER → 2024-09-15 14:34 | Outpatient (CLI) | payer MEDICARE, SELFPAY ==
[2024-06-17 17:43] VITALS: BMI 40.1
== END ==
LOC: WC 14:36
PROVIDERS: PCP Student in an Organized Health Care Education/Training Program; Referring Provider Student in an Organized Health Care Education/Training Program; Visit Provider Surgery
DX: G57.83 Other specified mononeuropathies of bilateral lower limbs (principal); L97.522 Non-pressure chronic ulcer of other part of left foot with fat layer exposed; M20.42 Other hammer toe(s) (acquired), left foot; R60.0 Localized edema; L84 Corns and callosities
CPT/HCPCS: 11042

== ENCOUNTER → 2024-09-22 11:50 | Outpatient (CLI) | payer MEDICARE, SELFPAY ==
[2024-06-17 17:43] VITALS: BMI 40.1
== END ==
LOC: WC 11:51
PROVIDERS: PCP Student in an Organized Health Care Education/Training Program; Referring Provider Student in an Organized Health Care Education/Training Program; Visit Provider Surgery
DX: G57.83 Other specified mononeuropathies of bilateral lower limbs (principal); L97.522 Non-pressure chronic ulcer of other part of left foot with fat layer exposed; Z87.2 Personal history of diseases of the skin and subcutaneous tissue; M20.42 Other hammer toe(s) (acquired), left foot
CPT/HCPCS: 11042

== ENCOUNTER → 2024-09-29 13:48 | Outpatient (CLI) | payer MEDICARE, SELFPAY ==
[2024-06-17 17:43] VITALS: BMI 40.1
== END ==
PROVIDERS: PCP Student in an Organized Health Care Education/Training Program; Referring Provider Student in an Organized Health Care Education/Training Program; Visit Provider Surgery
DX: Z87.2 Personal history of diseases of the skin and subcutaneous tissue (principal); M20.42 Other hammer toe(s) (acquired), left foot; L84 Corns and callosities
CPT/HCPCS: 99213